=== PATIENT | female | born 1980 | race Caucasian/White ===

== ENCOUNTER 2020-07-10 17:55 | Emergency (ER) | payer OTHER | END 2020-07-10 19:08 | disposition home or self-care (01) | LOC: NAV ERS 17:55 | DX: S93.401A Sprain of unspecified ligament of right ankle, initial encounter (principal); F17.210 Nicotine dependence, cigarettes, uncomplicated; G43.909 Migraine, unspecified, not intractable, without status migrainosus; X58.XXXA Exposure to other specified factors, initial encounter ==

== ENCOUNTER 2022-11-30 15:58 | Emergency (ER) | payer OTHER | END 2022-11-30 16:35 | disposition home or self-care (01) | LOC: NAV ERS 15:58 | DX: K65.8 Other peritonitis (principal); F17.210 Nicotine dependence, cigarettes, uncomplicated | CPT/HCPCS: 99282 ==

== ENCOUNTER 2023-02-17 11:52 | Emergency (ER) | payer OTHER, SELFPAY ==
[2023-02-17] MEDS ORDERED: Ibuprofen 200 MG TAB ONE (12:08)
== END 2023-02-17 13:06 | disposition home or self-care (01) ==
LOC: NAV ERS 11:52
DX: J02.0 Streptococcal pharyngitis (principal); F17.210 Nicotine dependence, cigarettes, uncomplicated; Z20.822 Contact with and (suspected) exposure to COVID-19
CPT/HCPCS: 87430; 87635; 87804; 99283

== ENCOUNTER 2023-05-27 19:33 | Emergency (ER) | payer SELFPAY ==
[2023-05-27 20:35] LABS: Influenza A by NAA Not Detected (NotDetected); Influenza B by NAA Not Detected (NotDetected); SARS-CoV-2 NAA Rapid Test Not Detected (NotDetected)
[2023-05-27] MEDS ORDERED: diphenhydrAMINE 50 MG/ML VIAL ONE (21:24)
[2023-05-27] MEDS ORDERED: Sodium Chloride 0.9% 1,000 ML ONE (21:24)
[2023-05-27] MEDS ORDERED: Prochlorperazine 10 MG/2 ML VIAL ONE (21:24)
[2023-05-27] MEDS ORDERED: Dexamethasone 4 mg/ml Vial ONE (21:24)
[2023-05-27] MEDS ORDERED: SUMAtriptan Succinate 6 MG/0.5 ML VIAL ONE (23:02)
== END 2023-05-28 00:50 | disposition home or self-care (01) ==
LOC: NAV ERS 19:33
DX: G43.909 Migraine, unspecified, not intractable, without status migrainosus (principal); F17.210 Nicotine dependence, cigarettes, uncomplicated
CPT/HCPCS: 96361; 96372; 96374; 96375; J0780; J1100; J1200; J3030; J7050